=== PATIENT | male | born 1995 | race Two or more races ===

== ENCOUNTER 2023-03-04 11:17 | Emergency (ER) | payer OTHER ==
[~2023-03-04] VITALS: Ht 154.9 cm; Wt 59.0 kg
[2023-03-04] MEDS ORDERED: ZYRTEC10 M3 PO (15:17)
== END 2023-03-04 15:26 | disposition home or self-care (01) ==
LOC: ER 11:17
DX: J00 Acute nasopharyngitis [common cold] (principal)

== ENCOUNTER → 2023-04-10 | Emergency (ER) | payer OTHER ==
[~2023-04-10] VITALS: Ht 157.5 cm; Wt 59.0 kg
[~2023-04-10] MED LIST: ZYRTEC10 M3 PO
== END | disposition home or self-care (01) ==
LOC: ER 13:24
DX: J06.9 Acute upper respiratory infection, unspecified (principal); B34.9 Viral infection, unspecified; Z20.822 Contact with and (suspected) exposure to COVID-19

== ENCOUNTER 2023-04-14 14:02 | Emergency (ER) | payer OTHER ==
[~2023-04-14] VITALS: Ht 154.9 cm; Wt 59.0 kg
== END 2023-04-14 18:25 | disposition home or self-care (01) ==
LOC: ER 14:02
DX: B34.9 Viral infection, unspecified (principal)